=== PATIENT | female | born 1980 | race Caucasian/White ===

== ENCOUNTER 2017-03-08 16:04 | Emergency (ER) | payer OTHER ==
[~2017-03-08] VITALS: Ht 160 cm; Wt 80.7 kg
[2017-03-08 16:07] VITALS: TEMP 36.7; Ht 160 cm; Wt 80.7 kg
[2017-03-08 16:31] VITALS: O2SAT 99
--- NOTE | 2017-03-08 16:31 | DIAGNOSTIC IMAGING REPORT ---
CHEST ONE VIEW PORTABLE CLINICAL HISTORY: Evaluate Fever/Sepsis dyspnea COMPARISON STUDY: No previous studies for comparison. FINDINGS: The bones soft tissues and hemidiaphragms are normal. The cardiomediastinal silhouette is normal. The lungs are clear. The pulmonary vasculature is normal. IMPRESSION: Negative chest. The above report was generated using voice recognition software. It may contain grammatical, syntax or spelling errors. Electronically signed by: Chandra Rabago M.D. 03/08/2017 4:29 PM Dictated Date/Time: 03/08/2017 4:29 PM
[2017-03-08 16:38] LABS: BASO % 0.4 %; BASO ABS # 0.04 K/uL (0-0.2); EOS % 2.2 %; EOS ABS # 0.24 K/uL (0-0.5); HEMATOCRIT 43.2 % (37-47); IG# 0.03 K/uL (0.00-0.02); LYMPH % 29.4 %; LYMPH ABS # 3.26 K/uL (1.2-3.4); MEAN CELL VOLUME 89.8 fL (80-100); MEAN CORPUSCULAR HEMOGLOBIN 31.2 pg (25-34); MEAN CORPUSCULAR HGB CONC 34.7 g/dl (32-36); MEAN PLATELET VOLUME 10.9 fL (7.4-10.4); MONO % 4.8 %; MONO ABS # 0.53 K/uL (0.11-0.59); NEUT % 62.9 %; NEUT ABS # 6.99 K/uL (1.4-6.5); PLATELET COUNT 267 K/uL (130-400); RED CELL DISTRIBUTION WIDTH CV 12.7 % (11.5-14.5); RED CELL DISTRIBUTION WIDTH SD 41.5 fL (36.4-46.3); WHITE BLOOD COUNT 11.09 K/uL (4.8-10.8)
[2017-03-08 16:51] LABS: PTT PATIENT 26.7 SECONDS (21.0-31.0)
[2017-03-08 17:00] LABS: ALBUMIN 3.9 gm/dl (3.4-5.0); ALT/SGPT 22 U/L (12-78); AST/SGOT 14 U/L (15-37); BLOOD UREA NITROGEN 13 mg/dl (7-18); CALCIUM 9.1 mg/dl (8.5-10.1); CARBON DIOXIDE 24 mmol/L (21-32); CREATININE 0.87 mg/dl (0.60-1.20); GLUCOSE 123 mg/dl (70-99); LIPASE 202 U/L (73-393); POTASSIUM 3.3 mmol/L (3.5-5.1); SODIUM 137 mmol/L (136-145)
[2017-03-08 17:06] LABS: ALKALINE PHOSPHATASE 58 U/L (45-117); CKMB 1.2 ng/ml (0.5-3.6); TOTAL PROTEIN 7.5 gm/dl (6.4-8.2)
--- NOTE | 2017-03-08 17:33 | EMERGENCY ROOM VISIT NOTE ---
History Report prepared by Criselda: Noah Bean Under the Supervision of: Dr. Chirs Stahl D.O. First contact with patient: 16:12 Chief Complaint: CHEST PAIN Stated Complaint: CHEST PAINS, NUMBNESS- PHYSICIAN REFERRED History of Present Illness The patient is a 36 year old female who presents to the Emergency Room with complaints of intermittent pinching in her left chest beginning 1.5 hours ago. The patient states she was at work talking when she developed a large pinching in her chest and shortness of breath. She reports she had to control her breathing to make the pinching go away. The patient notes she was going to go to a walk in clinic, but she decided to come to the ED instead. She states multiple co-workers have had cardiac problems. 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 She notes she currently is only experiencing chest pressure. The patient states she does not take any medication daily and does not have a history of chronic disease. She reports she developed a cough all weekend and has been coughing up mild phlegm. The patient notes she has a history of smoking, but she is trying to quit. She states she traveled to [place] a week ago and the [facility] this weekend. The patient denies a history of asthma, history of COPD, recent surgery, pain in legs, swelling in legs, and new cramps to her calves. Source of History: patient Onset: 1.5 hours ago Position: chest (left) Quality: other (pinching) Timing: intermittent Associated Symptoms: + SOB (resolved) Note: Denies: swelling in legs, new cramps in her calves, pain in legs, recent surgery Review of Systems See HPI for pertinent positives & negatives. A total of 10 systems reviewed and were otherwise negative. Past Medical & Surgical Medical Problems: (1) No Known Active Medical Problems Family History Patient reports no known family medical history. Social History Smoking Status: Current Every Day Smoker Marital Status: Housing Status: lives with family Occupation Status: employed Allergies Coded Allergies: No Known Allergies (Unverified , 03/08/17) Physical Exam Vital Signs Date Time Temp Pulse Resp B/P (MAP) Pulse Ox O2 Delivery O2 Flow Rate FiO2 03/08/17 18:01 75 20 123/81 99 03/08/17 17:55 75 20 123/75 99 Room Air 03/08/17 16:37 79 1/16/18 16:31 99 Room Air 03/08/17 16:31 99 03/08/17 16:07 36.7 89 18 146/78 99 Room Air Physical Exam CONSTITUTIONAL/VITAL SIGNS: Reviewed / noted above. GENERAL: Non-toxic in appearance. INTEGUMENTARY: Warm, dry, and [place]. HEAD: Normocephalic. EYES: without scleral icterus or trauma. ENT/OROPHARYNX: clear and moist. LYMPHADENOPATHY/NECK: Is supple without lymphadenopathy or meningismus. RESPIRATORY: Lungs clear and equal. CARDIOVASCULAR: Regular rate and rhythm. GI/ABDOMEN: Soft and nontender. No organomegaly or pulsatile mass. No rebound or guarding. Normal bowel sounds. EXTREMITIES: Warm and well perfused. BACK: No CVA tenderness. NEUROLOGICAL: Intact without focal deficits. PSYCHIATRIC: normal affect. MUSCULOSKELETAL: Normally developed with good muscle tone. Medical Decision & Procedures ER Provider Diagnostic Interpretation: X ray results and stated below per my interpretation and radiology interpretation. CHEST ONE VIEW PORTABLE CLINICAL HISTORY: Evaluate Fever/Sepsis dyspnea COMPARISON STUDY: No previous studies for comparison. FINDINGS: The bones soft tissues and hemidiaphragms are normal. The cardiomediastinal silhouette is normal. The lungs are clear. The pulmonary vasculature is normal. IMPRESSION: Negative chest. The above report was generated using voice recognition software. It may contain grammatical, syntax or spelling errors. Electronically signed by: Chandra Rabago M.D. 03/08/2017 4:29 PM Dictated Date/Time: 03/08/2017 4:29 PM Laboratory Results 03/08/17 16:20 Red Blood Count 4.81, Mean Corpuscular Volume 89.8, Mean Corpuscular Hemoglobin 31.2, Mean Corpuscular Hemoglobin Concent 34.7, Mean Platelet Volume 10.9, Neutrophils (%) (Auto) 62.9, Lymphocytes (%) (Auto) 29.4, Monocytes (%) (Auto) 4.8, Eosinophils (%) (Auto) 2.2, Basophils (%) (Auto) 0.4, Neutrophils # (Auto) 6.99, Lymphocytes # (Auto) 3.26, Monocytes # (Auto) 0.53, Eosinophils # (Auto) 0.24, Basophils # (Auto) 0.04 03/08/17 16:20 Test 03/08/17 16:20 White Blood Count 11.09 K/uL (4.8-10.8) Red Blood Count 4.81 M/uL (4.2-5.4) Hemoglobin 15.0 g/dL (12.0-16.0) Hematocrit 43.2 % (37-47) Mean Corpuscular Volume 89.8 fL (80-100) Mean Corpuscular Hemoglobin 31.2 pg (25-34) Mean Corpuscular Hemoglobin Concent 34.7 g/dl (32-36) Platelet Count 267 K/uL (130-400) Mean Platelet Volume 10.9 fL (7.4-10.4) Neutrophils (%) (Auto) 62.9 % Lymphocytes (%) (Auto) 29.4 % Monocytes (%) (Auto) 4.8 % Eosinophils (%) (Auto) 2.2 % Basophils (%) (Auto) 0.4 % Neutrophils # (Auto) 6.99 K/uL (1.4-6.5) Lymphocytes # (Auto) 3.26 K/uL (1.2-3.4) Monocytes # (Auto) 0.53 K/uL (0.11-0.59) Eosinophils # (Auto) 0.24 K/uL (0-0.5) Basophils # (Auto) 0.04 K/uL (0-0.2) RDW Standard Deviation 41.5 fL (36.4-46.3) RDW Coefficient of Variation 12.7 % (11.5-14.5) Immature Granulocyte % (Auto) 0.3 % Immature Granulocyte # (Auto) 0.03 K/uL (0.00-0.02) Prothrombin Time 10.5 SECONDS (9.0-12.0) Prothromb Time International Ratio 1.0 (0.9-1.1) Activated Partial Thromboplast Time 26.7 SECONDS (21.0-31.0) Partial Thromboplastin Ratio 1.0 D-Dimer 380 ug/L FEU (0-500) Anion Gap 7.0 mmol/L (3-11) Est Creatinine Clear Calc Drug Dose 89.9 ml/min Estimated GFR () 99.3 Estimated GFR (Non- 85.7 BUN/Creatinine Ratio 14.5 (10-20) Calcium Level 9.1 mg/dl (8.5-10.1) Total Bilirubin 0.4 mg/dl (0.2-1) Direct Bilirubin 0.1 mg/dl (0-0.2) Aspartate Amino Transf (AST/SGOT) 14 U/L (15-37) Alanine Aminotransferase (ALT/SGPT) 22 U/L (12-78) Alkaline Phosphatase 58 U/L (45-117) Total Creatine Kinase 61 U/L (26-192) Creatine Kinase MB 1.2 ng/ml (0.5-3.6) Creatine Kinase MB Ratio 2.0 (0-3.0) Troponin I < 0.015 ng/ml (0-0.045) Total Protein 7.5 gm/dl (6.4-8.2) Albumin 3.9 gm/dl (3.4-5.0) Lipase 202 U/L (73-393) Laboratory results as stated above per my review. ECG Indication: chest pain Rate (beats per minute): 80 Rhythm: normal sinus Findings: no acute ischemic change, no ectopy ED Course 1614: Previous medical records were reviewed. The patient was evaluated in room B11B. A complete history and physical examination was performed. 1734: On reevaluation, the patient is resting and feeling better. I discussed the results and findings with the patient. She verbalized agreement of the treatment plan. The patient was discharged home. Medical Decision Differentials considered include acute myocardial infarction, acute coronary syndrome, myocarditis, pericarditis, pericardial effusions /tamponade, esophageal perforation, thoracic aortic dissection, pulmonary embolism, pneumonia, pneumothorax, pancreatitis, shingles, acute cholecystitis, and perforated abdominal viscus. This is a 36-year-old female who presents to the ED with a chief complaint of a pinching sensation in her left chest that started around 1445 this afternoon. She states that she has had a cough all weekend. She had a little shortness of breath. She was at work on her symptoms started. She reports that one coworker recently was diagnosed with a PE and another from an [place]. She was concerned about her symptoms and came in for evaluation. Her physical exam was normal and her vital signs are stable. She does not take any medication. She reports being a smoker. EKG shows a normal sinus rhythm without ectopy or acute injury. CBC and complete metabolic panel as well as troponin are negative. Chest x-ray was negative for acute disease. D-dimer is negative. The patient was told the results the test. She is felt to be stable for discharge and outpatient follow-up. Impression Primary Impression: Left sided chest pain Scribe Attestation The scribe's documentation has been prepared under my direction and personally reviewed by me in its entirety. I confirm that the note above accurately reflects all work, treatment, procedures, and medical decision making performed by me. Departure Information Dispostion Home / Self-Care Referrals No Doctor, Assigned (PCP) Forms Call Back Authorization, HOME CARE DOCUMENTATION FORM, IMPORTANT VISIT INFORMATION Patient Instructions My [facility] Additional Instructions Your test results today did not show any concerning abnormalities. Follow-up with your doctor for recheck if symptoms persist. Return for significant worsening or other concerns.
[2017-03-08 18:01] VITALS: BP 123/81; PULSE 75; O2SAT 99
== END 2017-03-08 18:02 | disposition home or self-care (01) ==
LOC: C.EDB 16:05
DX: R07.89 Other chest pain (principal); F17.200 Nicotine dependence, unspecified, uncomplicated